=== PATIENT | female | born 1985 | race Caucasian/White ===

== ENCOUNTER 2016-07-26 13:22 | Emergency (ER) | payer OTHER ==
[2016-07-26 13:31] VITALS: PULSE 70; O2SAT 99
[2016-07-26] MEDS ORDERED: TORAdol 30 mg Injection IV ONE (13:43)
[2016-07-26] MEDS ORDERED: Vistaril 50 MG/ML IM ONE ×2 (13:43→14:00)
[2016-07-26 13:57] LABS: BASOPHIL % 0.2 % (0.0-0.4); Granulocytes % 54.8 % (36.0-66.0); Lymphocytes % 38.9 % (24.0-44.0); Mean Cell Volume 91.1 fl (78-100); Mean Corpuscular Hemoglobin 30.8 pg (26-32); Mean Platelet Volume 11.7 fl (6-9.5); Monocytes % 6.1 % (0.0-12.0); Platelet Count 142 K/mm3 (150-450); Red Blood Count 4.39 M/mm3 (4.1-5.4); Red Cell Distribution Width 12.6 % (11.5-14.0); White Blood Count 6.5 K/mm3 (4.0-10.5)
[2016-07-26] MEDS ORDERED: TORAdol 30 mg Injection ONE (14:00)
--- NOTE | 2016-07-26 14:14 | ERPHSYRPT ---
- History of Present Illness Time Seen by Provider: 07/26/16 13:36 Historian: patient Patient Subjective Stated Complaint: PT REPORTS WAKING UP THIS AM WITH CHEST PAIN RADIATING TO RIGHT SHOULDER ET BACK-REPORTS TINGLING TO BOTH HANDS BUT DENIES SOB-DENIES DIAPHORESIS Triage Nursing Assessment: PT PINK WARM ET DRY-RESP NONLABORED-WHEEZES NOTED-NO RETRACTIONS NOTED-SPEAKING IN COMPLETE SENTECES WITHE ASE-RADIAL PULSE REGULAR ET STRONG Physician History: CC: chest pain Hx: 30 y/o patient of Dr Reeves. She has had chest pain off and on for months. Has been on xanax and celexa. Has been to [facility] ER. 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 She has different pain in right chest to the right arm and the back. Not short of breath. No palpitations. No fever or chills or cough. She was scared so came to ER. Normal LMP last week. Nitro Today/Relief: no nitro taken today Aspirin Treatment Today: no aspirin today Allergies/Adverse Reactions: No Known Drug Allergies Allergy (Verified 07/26/16 13:31) Home Medications: Alprazolam [Xanax ER 0.5MG] 0.5 mg PO BID 07/26/16 [History] Hx Tetanus, Diphtheria Vaccination/Date Given: No Hx Influenza Vaccination/Date Given: Yes Hx Pneumococcal Vaccination/Date Given: No Immunizations Up to Date: Yes - Review of Systems Constitutional: No Fever, No Chills Eyes: No Symptoms Ears, Nose, & Throat: No Symptoms Respiratory: No Cough, No Dyspnea Cardiac: Chest Pain, No Edema, No Palpitations, No Syncope Abdominal/Gastrointestinal: No Abdominal Pain, No Nausea, No Vomiting Genitourinary Symptoms: No Symptoms Musculoskeletal: No Symptoms Skin: No Rash Neurological: No Headache Psychological: Anxiety, Emotional Lability, Other (stress) All Other Systems: Reviewed and Negative - Past Medical History Pertinent Past Medical History: Yes Neurological History: No Pertinent History ENT History: No Pertinent History Cardiac History: No Pertinent History Respiratory History: No Pertinent History Endocrine Medical History: No Pertinent History Musculoskeletal History: Arthritis GI Medical History: No Pertinent History History: No Pertinent History Psycho-Social History: Anxiety Female Reproductive Disorders: No Pertinent History - Past Surgical History Past Surgical History: No - Social History Smoking Status: Current every day smoker How long have you smoked: YRS Exposure to second hand smoke: Yes Drug Use: marijuana Patient Lives Alone: No - Female History Hx Last Menstrual Period: YESTERDAY - Nursing Vital Signs Temperature: 98.4 F Temperature Source: Oral Pulse Rate: 70 Respiratory Rate: 18 Pain Intensity: 8 - Physical Exam General Appearance: alert Eye Exam: PERRL/EOMI Ears, Nose, Throat Exam: normal ENT inspection, moist mucous membranes Neck Exam: normal inspection, non-tender, supple Respiratory Exam: normal breath sounds, lungs clear, No respiratory distress Cardiovascular Exam: regular rate/rhythm, No murmur, No friction rub, No gallop Gastrointestinal/Abdomen Exam: soft, No tenderness, No distention Back Exam: normal inspection, normal range of motion Extremity Exam: normal inspection, normal range of motion, No calf tenderness, No pedal edema Neurologic Exam: alert, oriented x 3, cooperative, sensation nml, No motor deficits Skin Exam: warm, dry, No rash SpO2 Interpretation: normal SpO2: 99 Oxygen Delivery: Room Air - Course Nursing assessment & vital signs reviewed: Yes EKG Interpreted by Me: RATE (59), Sinus Dennis, NORMAL AXIS, NORMAL INTERVALS ( QTc 416), NORMAL QRS, NORMAL ST-T - Radiology Exams cxr X-ray Interpretation: Negative (per radiologist), Nml Mediastinum Ordered Tests: Active Orders 24 hr Category Date Time Status Clean Catch Urine Specimen STAT Care 07/26/16 13:42 Active EKG-ER Only STAT Care 07/26/16 13:42 Active IV Insertion STAT Care 07/26/16 13:42 Active CHEST 2 VIEWS (PA AND LAT) Stat Exams 07/26/16 13:42 Taken CBC W DIFF Stat Lab 07/26/16 13:30 Completed CMP Stat Lab 07/26/16 13:30 Completed HCG QUALITATIVE,SERUM Stat Lab 07/26/16 13:30 Completed TROPONIN Stat Lab 07/26/16 13:30 Completed UA Stat Lab 07/26/16 13:42 Ordered Urine Triage Profile Stat Lab 07/26/16 13:42 Ordered Medication Summary Discontinued Medications Generic Name Dose Route Start Last Admin Trade Name Freq PRN Reason Stop Dose Admin Hydroxyzine HCl 50 mg 07/26/16 13:43 07/26/16 14:03 Vistaril 50 Mg/Ml IM 07/26/16 13:44 50 mg STAT ONE Administration Hydroxyzine HCl Confirm 07/26/16 14:00 Vistaril 50 Mg/Ml Administered 07/26/16 14:01 Dose [address] ONE Ketorolac Tromethamine 30 mg 07/26/16 13:43 07/26/16 14:02 Toradol 30 Mg Injection IV 07/26/16 13:44 30 mg STAT ONE Administration Ketorolac Tromethamine Confirm 07/26/16 14:00 Toradol 30 Mg Injection Administered 07/26/16 14:01 Dose 30 mg .ROUTE .[facility] Lab/Rad Data: Laboratory Result Diagrams 07/26/16 13:30 07/26/16 13:30 Laboratory Results 07/26/16 07/26/16 07/26/16 Range/Units 13:30 13:30 13:30 WBC 6.5 (4.0-10.5) K/mm3 RBC 4.39 (4.1-5.4) M/mm3 Hgb 13.5 (12.0-16.0) gm/dl Hct 40.0 (35-47) % MCV 91.1 (78-100) fl MCH 30.8 (26-32) pg MCHC 33.8 (32-36) g/dl RDW 12.6 (11.5-14.0) % Plt Count 142 L (150-450) K/mm3 MPV 11.7 H (6-9.5) fl Gran % 54.8 (36.0-66.0) % Lymphocytes % 38.9 (24.0-44.0) % Monocytes % 6.1 (0.0-12.0) % Eosinophils % 0.0 (0.00-5.0) % Basophils % 0.2 (0.0-0.4) % Basophils # 0.01 (0-0.4) Sodium 140 (136-145) mEq/L Potassium 3.6 (3.5-5.1) mEq/L Chloride 107 (98-107) mEq/L Carbon Dioxide 27.3 (21-32) mEq/L Anion Gap 9.0 (5-15) MEQ/L BUN 9 (9-20) mg/dL Creatinine 0.75 (0.55-1.30) mg/dl Estimated GFR > 60 ML/MIN Glucose 93 (70-110) MG/DL Calcium 9.1 (8.5-10.1) mg/dL Total Bilirubin 0.5 (0.2-1.0) mg/dL AST 16 (15-37) U/L ALT 14 (12-78) U/L Alkaline Phosphatase 53 (46-116) U/L Troponin I < 0.017 (0.000-0.056) ng/ml Serum Total Protein 7.1 (6.4-8.2) gm/dL Albumin 4.0 (3.4-5.0) g/dL Serum , Qual NEGATIVE (Negative) - Progress Progress Note: 07/26/16 14:18 Heart score low risk (1 for smoking). EKG wnl. Symptoms suggest anxiety. PERC negative. 07/26/16 14:34 She feels some better after rest, toradol, vistaril. Will release with follow up with Dr Reeves. Counseled pt/family regarding: lab results, diagnosis, need for follow-up, rad results - Departure Time of Disposition: 14:35 Departure Disposition: Home Clinical Impression: Chest pain, Anxiety Condition: Stable Critical Care Time: No Referrals: SOO REEVES MD [Primary Care Provider] - 07/29/16 10:00 am Instructions: Chest Pain, Anxiety -- Adult Additional Instructions: No driving and stay with family today. Follow up with Dr Reeves. Take your normal medications as already prescribed.
[2016-07-26 14:22] LABS: ALKALINE PHOSPHATASE 53 U/L (46-116); BILIRUBIN,TOTAL 0.5 mg/dL (0.2-1.0); BLOOD UREA NITROGEN 9 mg/dL (9-20); CHLORIDE 107 mEq/L (98-107); Carbon Dioxide 27.3 mEq/L (21-32); Glucose 93 MG/DL (70-110); Potassium 3.6 mEq/L (3.5-5.1); SGOT/AST 16 U/L (15-37); SGPT/ALT 14 U/L (12-78); SODIUM 140 mEq/L (136-145); Total Protein 7.1 gm/dL (6.4-8.2)
[2016-07-26 14:27] LABS: TROPONIN < 0.017 ng/ml (0.000-0.056)
--- NOTE | 2016-07-26 14:35 | XRAY ---
Indication: Chest pain. Comparison: None PA/lateral chest demonstrates normal heart, lungs, and bony thorax.
[2016-07-26 14:42] VITALS: BP 101/59
== END 2016-07-26 15:33 | disposition home or self-care (01) ==
LOC: ED 13:22
DX: R07.89 Other chest pain (principal); F41.9 Anxiety disorder, unspecified
CPT/HCPCS: 36000; 36415; 71020; 80053; 84484; 84703; 85025; 93005; 96372; 96374; 99284; J1885; J3410

== ENCOUNTER 2022-07-04 08:14 | Day surgery (SDC) | payer OTHER ==
--- NOTE | 2022-07-04 08:06 | HP ---
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 Sometimes hernia bulges out and she pushes it back in. It has been going on for a few short years worse recently. PAST MEDICAL HISTORY: Migraine headaches in the past. Arthritis. History of depression in the past. PAST SURGICAL HISTORY: She denied any prior surgery. MEDICATIONS: Buspirone, Xanax, Celexa. ALLERGIES: WELLBUTRIN. FAMILY HISTORY: Negative. SOCIAL HISTORY: Smoker, does use some marijuana occasionally. No alcohol abuse. REVIEW OF SYSTEMS: Fourteen systems reviewed. No chest pain or palpitations. Other systems negative or noncontributory as above and per preadmission questionnaire. PHYSICAL EXAMINATION: Height 5'3". BMI 29.76. GENERAL: No acute distress. HEENT: Sclerae nonicteric. EOMI. Oral mucous membranes moist. NECK: No JVD. CHEST: Equal excursion, nonlabored breathing. CVS: Regular rate and rhythm. ABDOMEN: Soft. Epigastric pressure, ventral hernia likely with incarcerated fat. EXTREMITIES: No significant edema. NEURO: Alert, oriented, moving extremities symmetrically. PSYCH: Appropriate mood and affect. SKIN: Dry. IMPRESSION: Incarcerated epigastric ventral hernia. I feel the patient would benefit from repair. Risks explained in detail but not limited to bleeding or infection, risk of trocar injury or hernia, risk of bowel, bladder, blood vessel issues or injury, risk of adhesion, scar formation or obstruction. Perioperative risk of ileus, aches, pains, bloating or numbness possible press tender long goods. Risk of recurrence. Risk of mesh infection possibly requiring removal. Remote risk of mesh fracture or failure possibly creating issues with the viscera or other structures possibly requiring other procedures. Risk of hematoma or seroma formation as well as risk of hernia recurrence. General risk of anesthesia, sedation, deep venous thrombosis, pulmonary embolism, pneumonia but not limited to, possible need for open procedure. She understands and agrees to the planned procedure, will proceed with laparoscopic-assisted repair of incarcerated ventral hernia with mesh possible open.
[2022-07-04] MEDS ORDERED: EXPAREL 133 MG/10 ML VIAL IJ ONE (08:15)
[2022-07-04] MEDS ORDERED: Lactated Ringers 1,000 ML IV ONE ×2 (08:46→12:46)
[2022-07-04 08:47] LABS: HCG URINE TEST NEGATIVE (NEGATIVE)
[2022-07-04] MEDS ORDERED: CEFAZOLIN 2 GM-D5W BAG** 2 GM/50 ML ML IV SCH (09:30)
[2022-07-04] MEDS ORDERED: Lactated Ringers 1,000 ML IV SCH (09:30)
[2022-07-04] MEDS ORDERED: Transderm Scop 1.5MG Patch ONE (09:48)
[2022-07-04] MEDS ORDERED: Pepcid 20 MG VIAL IV ONE ×2 (09:48→09:49)
[2022-07-04] MEDS ORDERED: Transderm Scop 1.5MG Patch TOP PRN (09:50)
[2022-07-04] MEDS ORDERED: Sensorcaine 0.25% 10 ML ONE ×2 (09:53→10:49)
[2022-07-04] MEDS ORDERED: Zemuron 100 MG/10 ML ONE (10:41)
[2022-07-04] MEDS ORDERED: Xylocaine-Mpf 2% 5 Ml Vial ONE (10:41)
[2022-07-04] MEDS ORDERED: DIPRIVAN 200 MG/20 ML IV ONE (10:41)
[2022-07-04] MEDS ORDERED: Decadron 4 MG INJ ONE (10:41)
[2022-07-04] MEDS ORDERED: Zofran 4 MG/2 ML VIAL ONE (10:41)
[2022-07-04] MEDS ORDERED: Versed 2 MG/2 ML Injection ONE (10:42)
[2022-07-04] MEDS ORDERED: OFIRMEV 100 ML IV ONE (10:49)
[2022-07-04] MEDS ORDERED: Pre-Attached Lta Kit TP ONE (10:49)
[2022-07-04] MEDS ORDERED: SUBLIMAZE 100 MCG/2 ML ONE ×3 (11:08→13:44)
[2022-07-04] MEDS ORDERED: ROBINUL ONE (11:55)
[2022-07-04] MEDS ORDERED: DEXMEDETOMIDINE 80 MCG/20ML-NS IV ONE (12:00)
[2022-07-04] MEDS ORDERED: TRANDATE 20 MG/4 ML SYRINGE IV ONE (12:08)
[2022-07-04] MEDS ORDERED: BRIDION 200MG/2ML IV ONE (12:12)
[2022-07-04] MEDS ORDERED: Hydromorphone 1 mg/ml Injection ONE (14:17)
[2022-07-04] MEDS ORDERED: NORCO 5/325 MG PO PRN (15:11)
[2022-07-04 15:30] VITALS: O2SAT 94
[2022-07-04 15:40] VITALS: BP 100/58; PULSE 69
--- NOTE | 2022-07-04 15:42 | OP ---
SURGERY DATE/TIME: 07/04/2022 1135 PREOPERATIVE DIAGNOSIS: Incarcerated ventral hernia x2 repaired en bloc with single piece of mesh. POSTOPERATIVE DIAGNOSIS: Incarcerated ventral hernia x2 repaired en bloc with single piece of mesh. PROCEDURE: Laparoscopic repair of incarcerated ventral hernia x2 en bloc with single piece of mesh (span of the two different hernia defects 7.5 cm). SURGEON: Dr. Jackson Rudolph. ANESTHESIA: General. ESTIMATED BLOOD LOSS: Minimal. INDICATIONS: As noted above. Risks and benefits explained in detail and not limited to and consent obtained. The site was confirmed with the patient in the preoperative holding area. DESCRIPTION OF PROCEDURE AND FINDINGS: The patient is taken to the operating room. General anesthesia induced. Prepped and draped in usual sterile fashion. After official time out and no disagreement with planned procedure, a transverse incision made in the left upper quadrant. Fascia grasped and pulled upwards. Veress needle inserted and tested with saline. Pneumoperitoneum accomplished opening pressure 0 to 15. A 5 mm bladeless port and camera inserted without difficulty followed by another left mid abdomen lateral 5 mm port, left lower quadrant 5 mm port and right mid abdomen 5 mm port. Carefully with LigaSure device and grasper the preperitoneal space entered superiorly and dissection carried down. The patient had a large amount of incarcerated fat in the epigastric ventral hernia this was slowly and carefully reduced down. It took some time but slowly and carefully accomplished with aid of LigaSure and the blunt grasper. A little bit smaller hernia down by the naval area this all too was reduced through preperitoneal fat and reduced incarceration of this one too. The sites were measured. It measured about 7 to 7.5 cm span. It was felt these could be repaired with one piece of mesh. It was felt that size [address] mesh was the most appropriate as this is a common mesh I use unfortunately was not available at this facility at this time. They called some nearby facilities but were unable to get it in delaying the case. It was elected to use a larger [address] Echo mesh as there was no other mesh available and she needed overlap of both areas. It was cut to the appropriate dimensions, carefully marking abdominal wall. Four quadrant 0 Ethibond sutures were placed. After having waited for additional #1 Vicryl suture, suture passer used to place the transfascial sutures on either side. The true fascial defects could be brought together after placing mesh in the abdomen. Again, after waiting delays in the case and the suture availability and suture passer used to place #1 Vicryl as a temporary tag. It was elected to go ahead and put a port over the largest defect carefully placed. After the four quadrant 0 Ethibond placed in four quadrants on the mesh it was carefully wetted and placed in the abdomen. Pressure turned down to 8 or 9 and the transfascial #1 Vicryl was used to bring the fascia back to midline normal position. Once this was accomplished suture passer used to pull the mesh up centering it to overlap on either defect. 0 Ethibond was then brought up transfascially at the four quadrants. Once this was accomplished the mesh was then tacked with a CapSure Tacker about 1 cm apart around the periphery. The balloon was then carefully removed and withdrawn. It was noted to be intact. SorbaFix tacker used to tack more centrally. It was nice and flat in tension free manner. The pressure had been turned down to 8 or 9 range. Overlapped both hernia defects with good overlap. At this point pneumoperitoneum decompressed. There were no visceral issues just delay in having mesh available and suture available but accomplished well. Pneumoperitoneum decompressed. The subcu closed with 3-0 Vicryl. The largest port site closed with 4-0 Vicryl. Anesthesia applied tap blocks. The patient tolerated the procedure well. There were no immediate complications. Findings discussed with the family out in the waiting area.
== END 2022-07-04 15:55 | disposition home or self-care (01) ==
LOC: SDC 08:14
PROVIDERS: ATTEND Surgery
DX: K43.6 Other and unspecified ventral hernia with obstruction, without gangrene (principal)
CPT/HCPCS: 36415; 81025; J0690; J1100; J1170; J2250; J2405; J2704; J3010; L0625; A9270-GY; C1781

== ENCOUNTER 2022-08-19 06:01 | Day surgery (SDC) | payer OTHER ==
[2022-08-19 06:13] LABS: HCG URINE TEST NEGATIVE (NEGATIVE)
[2022-08-19] MEDS ORDERED: Lactated Ringers 1,000 ML IV SCH (06:30)
[2022-08-19] MEDS ORDERED: CEFAZOLIN 2 GM-D5W BAG** 2 GM/50 ML ML IV SCH (06:30)
[2022-08-19] MEDS ORDERED: Transderm Scop 1.5MG Patch TOP PRN (06:39)
[2022-08-19] MEDS ORDERED: Xylocaine 1% Vial 30 ML PF IJ ONE (06:41)
[2022-08-19] MEDS ORDERED: Marcaine Mpf 0.5% Vial 30 Ml ONE (06:41)
[2022-08-19] MEDS ORDERED: Lactated Ringers 1,000 ML IV ONE (06:41)
[2022-08-19] MEDS ORDERED: Zemuron 100 MG/10 ML ONE (06:42)
[2022-08-19] MEDS ORDERED: Decadron 4 MG INJ ONE ×2 (06:42→06:57)
[2022-08-19] MEDS ORDERED: Zofran 4 MG/2 ML VIAL ONE (06:42)
[2022-08-19] MEDS ORDERED: Xylocaine-Mpf 2% 5 Ml Vial ONE (06:42)
[2022-08-19] MEDS ORDERED: SUBLIMAZE 100 MCG/2 ML ONE ×3 (06:43→09:57)
[2022-08-19] MEDS ORDERED: DIPRIVAN 200 MG/20 ML IV ONE (06:43)
[2022-08-19 06:47] LABS: Hematocrit 41.8 % (35-47); Mean Cell Volume 93.3 fL (78-100); Mean Corpuscular Hemoglobin 31.3 pg (26-32); Mean Corpuscular Hgb Concent. 33.5 g/dL (32-36); Mean Platelet Volume 10.5 fL (7.5-11.0); Platelet Count 162 x10^3/uL (150-450); Red Blood Count 4.48 x10^6/uL (4.1-5.4); Red Cell Distribution Width 11.9 % (11.5-14.0); White Blood Count 4.9 x10^3/uL (4.0-10.5)
[2022-08-19] MEDS ORDERED: OFIRMEV 100 ML IV ONE (06:50)
[2022-08-19] MEDS ORDERED: Pre-Attached Lta Kit TP ONE (06:50)
[2022-08-19] MEDS ORDERED: Versed 2 MG/2 ML Injection ONE (06:57)
[2022-08-19 07:00] LABS: ALBUMIN 4.2 g/dL (3.5-5.0); ALKALINE PHOSPHATASE 60 U/L (38-126); ANION GAP 13.7 MEQ/L (5-15); BLOOD UREA NITROGEN 16 mg/dL (7-17); CHLORIDE 103 mmol/L (98-107); Calcium 8.8 mg/dL (8.4-10.2); Carbon Dioxide 27 mmol/L (22-30); EST GLOMERULAR FILTRATION RATE > 60.0 ML/MIN; Glucose 109 mg/dL (74-106); SGOT/AST 23 U/L (14-36); SGPT/ALT 17 U/L (0-35); SODIUM 140 mmol/L (137-145); Total Protein 7.4 g/dL (6.3-8.2)
[2022-08-19 07:01] LABS: INR 0.93 (0.8-3.0); PROTIME 10.2 SECONDS (9.4-12.5); PTT 27.4 SECONDS (25.1-36.5)
[2022-08-19] MEDS ORDERED: TORAdol 30 mg Injection ONE (09:07)
[2022-08-19] MEDS ORDERED: BRIDION 200MG/2ML IV ONE (09:19)
--- NOTE | 2022-08-19 09:34 | XRAY ---
Indication: Right foot lapidus, possible namrata, lateral release. Intraoperative fluoroscopy provided for 6 minutes 20 seconds. 23 digital spot images submitted for interpretation ultimately demonstrates 1st tarsometatarsal arthrodesis with intact hardware. Also 1st proximal phalanx osteotomy with single fixation screw. Correlate with intraoperative findings/report.
[2022-08-19 10:23] VITALS: O2SAT 93
[2022-08-19 10:36] VITALS: BP 105/67; PULSE 68
--- NOTE | 2022-08-19 13:18 | OP ---
SURGERY DATE/TIME: 08/19/2022 0723 PREOPERATIVE DIAGNOSES: 1) Hallux abductovalgus. 2) Right foot pain. 3) Muscle imbalance. POSTOPERATIVE DIAGNOSES: 1) Hallux abductovalgus. 2) Right foot pain. 3) Muscle imbalance. PROCEDURES: 1) Lapidus arthrodesis right foot. 2) Khurram osteotomy. 3) Silver. 4) Lateral release. SURGEON: Humza Bonilla DPM. GREEN MARKETING SPECIALIST: None. ANESTHESIA: General plus intraoperative ankle block consisting of 30 cc of a 1:1 mixture of 1% lidocaine plain and 0.5% bupivacaine plain. HEMOSTASIS: Ankle tourniquet set to 300 mm of Mercury for 112 total tourniquet minutes. ESTIMATED BLOOD LOSS: 25 cc. MATERIALS: Sudha InCore Lapidus right 5.9 x 28 mm post with a 3.5 x 42 and 3.5 x 30 screw, for the Khurram a MAX VPC measuring 2.5 x 22 mm, 4-0 Monocryl and 3-0 Nylon. INJECTABLES: 30 cc of a 1:1 mixture of 1% lidocaine plain and 0.5% bupivacaine plain injected in ankle block-type fashion. INDICATION FOR SURGERY: Trudy is a very pleasant 36-year-old female who presented to my service for concerns over pain to the right foot secondary to a bunion deformity to the right lower extremity. Clinical exam was performed demonstrating significant hypermobility of the first ray as well as pes planus. The patient did also have a significant amount of pain with palpation of the medial aspect of the joint however significant range of motion her sesamoids were displaced and the patient has tried accommodating for this pain over the course of the last several years with shoe gear modifications, orthotics and avoiding pressure from shoe gear to this location. The patient wishes to proceed with surgical intervention. All risks, benefits and complications of surgical intervention were discussed with the patient including but not limited to infection, hematoma, seroma, possibility of delayed wound healing, nonwound healing, possibility of failure of surgical intervention, possibility of need for surgical intervention at a later date. No guarantees were provided as to the outcome of surgery at this time. It is with that we decided to proceed. DESCRIPTION OF PROCEDURE AND FINDINGS: The patient was brought into the OR and placed on the OR table in the supine position. At this time general anesthesia was administered until the patient was sedated. At this time a well-padded thigh tourniquet was applied to the patient's right thigh and the tourniquet was set to 300 mm of Mercury. The right lower extremity was prepped and draped in the typical sterile fashion and lowered onto the surgical field. At this time attention was directed under fluoroscopic guidance to the first tarsometatarsal joint where the bunion deformity apex was identified. At this time an incision was made at the dorsal aspect following the line of the extensor hallucis longus being careful not to damage any neurovascular structures along the way. Any bleeders were cauterized. Any nerves were retracted out of the site. At this time attention was directed to the first tarsometatarsal joint where soft tissue was released from its bony attachment in full thickness flaps. The soft tissue was retracted. A paddle was introduced in between the intermediate and medial cuneiforms guiding our position for the pin to be set for the InCore Lapidus. At this time the pin was set. Cut guide was introduced and according to instructor watch assembly's specifications the cut guide was utilized to resect the distal aspect of the first metatarsal base as well as the distal aspect of the medial cuneiform resecting as little cartilage and bone as possible. Corrections were made and the cartilage was then removed and the joint was flushed. At this time a jig was applied in order to distract the site this was distracted and the joint was prepped. The joint was then compressed utilizing a jig and a 3.5 x 42 and 3.5 x 30 were introduced into the peg making sure the position of the sesamoids. The intermetatarsal 1-2 angle and compression through the joint was all obtained this was checked under multiple views and deemed to be adequate. At this time attention was then directed to the first proximal phalanx where incision was made oblique cut was made perpendicular to the longitudinal axis of the proximal phalangeal base as well as oblique to take approximately 2 to 3 mm wedge from the medial aspect this was closed down until there was a greenstick fracture at the lateral aspect and then a K-wire was introduced parallel to the proximal phalanx longitudinal axis which compressed this site and gained some improvement. Prior to the Khurram osteotomy, a lateral release was performed. Following the Khurram osteotomy a silver was decided to be done where a small incision was made at the medial aspect of the metatarsal head. The capsule was resected. A [facility] capsulotomy was performed retracting the capsule. An 18 mm blade was utilized to shave the prominence at the dorsal medial aspect of the first metatarsal. Copious amounts of sterile saline were utilized to flush all sites. The capsule was repaired to the [facility] capsulorrhaphy utilizing 4-0 Monocryl. The remaining subcutaneous edges were coapted utilizing 4-0 Monocryl in a simple buried interrupted-type fashion and then 3-0 Nylon was utilized to coapt the remaining skin edges in horizontal mattress-type fashion. A dressing consisting of Betadine, Adaptic, 4x4, Kerlix and MAGNUS were applied. The patient was then returned to the postoperative anesthesia care unit with vital signs stable and vascular status intact. The patient handled the anesthesia as well as the procedure without significant complication. Postoperative orders as indicated in the patients discharge chart.
--- NOTE | 2022-08-19 16:47 | XRAY ---
6 minutes 28 seconds of fluoroscopy was used in surgery for a right foot lapidus, possible namrata, lateral release.
== END 2022-08-19 10:55 | disposition home or self-care (01) ==
LOC: SDC 06:01
PROVIDERS: ATTEND Podiatrist Foot & Ankle Surgery
DX: M20.11 Hallux valgus (acquired), right foot (principal); M79.671 Pain in right foot; M62.9 Disorder of muscle, unspecified
CPT/HCPCS: 28297; 28299; 28310; 36415; 73630; 76000; 80053; 81025; 85027; 85610; 85730; C1713; J0690; J1100; J1885; J2001; J2250; J2405; J2704; J3010; A9270-GY